=== PATIENT | male | born 1965 | race Caucasian/White ===

== ENCOUNTER 2019-09-02 12:48 | Inpatient (IN) | payer MEDICARE ==
[2019-08-31 16:44] LABS: HEMATOCRIT 42.9 % (42.0-54.0); HEMOGLOBIN 15.5 g/dL (13.5-17.5); MCH 32.9 pg (26.0-34.0); MCHC 36.1 g/dL (31.0-37.0); MCV 91.1 fL (80.0-100.0); MEAN PLATELET VOLUME 9.2 fL (7.4-10.4); RBC 4.71 10x6/uL (4.20-6.10); RDW 12.8 % (11.5-14.5); WBC 8.6 10x3/uL (4.8-10.8)
[~2019-09-02] VITALS: Ht 180.3 cm; Wt 106.4 kg
[2019-09-02] VITALS (19 sets, daily range): BP systolic 91–133; BP diastolic 60–91; Ht 180.3 cm; Wt 106.4 kg
--- NOTE | 2019-09-02 06:27 | NUR ---
0625-NOTIFIED SURGERY(HAI) OF PTS REQUEST TO SPEAK WITH PRIOR TO SIGNING BLOOD CONSENT
[~2019-09-02 12:48] MED LIST: BAYER CHEWABLE81 MG PO; CYCLOBENZAPRINE10 MG; LIPITOR40 MG PO; LISINOPRIL5 MG; SOMA350 MG; TENORMIN25 MG; TENORMIN25 MG PO
--- NOTE | 2019-09-02 19:00 | NUR ---
PT ASSESSMENT COMPLETED AT THIS TIME, PT AAOX4, NO CHANGES FROM NURSE REPORT, VSS, WILL MONITOR FOR CHANGES
--- NOTE | 2019-09-02 21:00 | NUR ---
PT TALKING WITH FAMILY AT BEDSIDE, NO DISTRESS NOTED
--- NOTE | 2019-09-02 23:00 | NUR ---
PT REASSESSMENT COMPLETED AT THIS TIME, NO CHANGES NOTED FROM PREVIOUS EXAM, VSS, WILL MONITOR FOR CHANGES
[2019-09-03] VITALS (19 sets, daily range): BP systolic 103–140; BP diastolic 57–80
--- NOTE | 2019-09-03 01:00 | NUR ---
pt awake watching tv, pt advised that he was going to try to sleep soon, and that he needed to lay on his side, pt was advised to call for assistance and we would help him get on his side.
--- NOTE | 2019-09-03 03:00 | NUR ---
PT REASSESSMENT COMPLETED AT THIS TIME, NO CHANGES NOTED FROM PREVIOUS EXAM, PT AWAKE AND STATES THAT HE CAN NOT SLEEP, PT DENIES DISTRESS, VSS AT THIS TIME, WILL MONTIOR FOR CHANGES
--- NOTE | 2019-09-03 04:57 | NUR ---
PT STATES THAT HE STILL IS NOT ABLE TO GET IN A POSITION TO SLEEP AFTER CHANGING POSITIONS THROUGH OUT THE NIGHT, PT STATES THAT HE WILL TRY TO GET SOME SLEEP NOW, VSS
--- NOTE | 2019-09-03 07:30 | NUR ---
PATIENT AWAKE AND ALERT. NON STOP TALKING. IV RIGHT HAND WITHOUT REDNESS OR SWELLING INFUSING WITH NS AT 50 ML HOUR. GILLESPIE CATH PATENT DRAINING CLEAR YELLOW URINE. ABD INCISION DRY AND INTACT. OPEN TO AIR. DENIES INCISIONAL PAIN SMALL AREAS OF DISCOMFORT IN VARIOUS PLACES, HIS THROAT IS SORE. DRINKING FLUIDS WITHOUT DIFFICULTY, NO SWALLOWING DIFFICULTY. HEAD OF BED ELEVATED 30 DEGREES. NO PROBLEM USING MORPHINE SHACTOR. IN CONSTANT MOTION IN BED. UNDERSTANDS HE IS ON BEDREST. MONITOR SR. ON ROOM AIR. SCD OFF AT PATIENT INSISTANCE. DRINKING COFFEE.NO DISTRESS
--- NOTE | 2019-09-03 08:00 | NUR ---
BREAKFAST TRAY SERVED ATE HIS EGGS. ALL FLUIDS ON TRAY.
--- NOTE | 2019-09-03 09:00 | NUR ---
MEDS TAKEN WITHOUT DIFFICULTY. NAPPING ATINTERVALS. AWAKES EASILY
--- NOTE | 2019-09-03 10:35 | OP ---
PATIENT NAME: JAKE SARKAR MEDICAL RECORD: [id number] :61 LOCATION:[facility] ADMISSION DATE:09/02/19 SURGEON: CARINE MELENDEZ MD DATE OF OPERATION: 09/02/2019 PREOPERATIVE DIAGNOSIS: Degenerative disc disease, L5-S1. POSTOPERATIVE DIAGNOSIS: Degenerative disc disease L5-S1. PROCEDURE: Anterior lumbar interbody fusion L5-S1 (please see Dr. Parson's dictation). This is a cosurgeon case. The access surgeon is Carine Melendez MD. The neurosurgeon is Dr. Avani Parson MD This is a cosurgeon case that Dr. Parson performed. Due to the complexity of the procedure, it was necessary to have 2 attending surgeons present for the procedure. I was present from positioning of the initial skin incision all the way until the final closure. OPERATIVE COURSE: Prior to positioning the patient, general anesthesia was induced by the anesthesia staff. The abdomen was sterilely prepped and draped. A lower midline incision was accomplished between the pubic symphysis and umbilicus. Sharp dissection was carried out through the skin and subcutaneous tissue as well as Reyna fascia. I incised the linea alba. I then the rectus muscles. I dissected down through preperitoneal fat. The transversalis fascia was identified and was incised laterally to the left. This allowed me to bluntly dissect out the peritoneal sac. Care was paid not to injure any nervous structures, the left ureter, the cord structures or any great vessel. None of these were injured during the procedure. Dr. Parson assisted me with retraction during this portion of the procedure. I was then able to place the Bookwalter retractor and was able to expose the sacral promontory. The median sacral vessels were cauterized with bipolar cautery. While retracting the entire time, Dr. Parson went about disc removal, preparation of the endplates as well as placement of trials and then the final fixation appliance. As I said no damage to the ureter, no damage to any vessel. Once he had placed the fixation device and was satisfied with placement, I then went about removing the retractors and also examining the left ureter, which was undamaged during the procedure. I noted no evidence of blood vessel damage. The rectus muscles were approximated in the midline with multiple interrupted horizontal mattress #1 Vicryls. The anterior fascia was approximated with a running looped #1 PDS from the cephalad and caudad directions. The subdermis was approximated with interrupted 3-0 Vicryls. The skin was approximated with a running intracuticular 3-0 Vicryl. A Prineo wound dressing was then applied. The patient was then extubated and conveyed to post-anesthesia care unit where he was in stable condition. TRANSINT:[id number] Voice Confirmation ID: [id number] DOCUMENT ID: [id number] OPERATIVE REPORT [id number] JAKE SARKAR, CARINE GORDILLO at 1035 CC: AVANI PARSON [id number] DICTATION DATE: 09/02/19 1741 RN HOME HEALTH: 09/03/19 0114 ADM IN [place] [id number] [place] [id number]
--- NOTE | 2019-09-03 11:30 | NUR ---
REFUSES LUNCH DUE TO NAUSEA. ZOFRAN GIVEN. OFFERED A BED BATH STATES MAYBE LATER. INCENTIVE SPIROMETRY GIVEN TO PATIENT [id number] ML EACH BREATH. ENCOURAGE TO USE FREQ. TO HELP PREVENT PNEUMONIA. VERBALIZED UNDERSTANDING.
--- NOTE | 2019-09-03 12:41 | NUR ---
PATIENT STATES HE IS FEELING FUNNY MORPHINE APPLICATION ARCHITECT MANAGER TURNED BACK TO 1 MG Q 10 MIN. PATIENT HAS ALREADY USED 30 MG OF MORPHINE PER APPLICATION ARCHITECT MANAGER STATES HIS PAIN IS A 2. PATIENT IS IN AGREEMENT WITH PLAN
--- NOTE | 2019-09-03 14:00 | NUR ---
STATES NAUSEA IS BETTER, BUT NOT COMPLETELY GONE. STATES HE HAS NOT USED MORPHINE IN OVER AN HOUR. DRINKING ON [place]. BROTHER HERE UPDATE GIVEN/ ABD DRESSING DRY AND INTACT. MONITOR SR. IV PATENT WITHOUT REDENSS OR SWELLING.
--- NOTE | 2019-09-03 15:24 | NUR ---
DR. PARSON HERE. ORDERS FOR LUMBAR CORSET, ABILIO [facility] NOTIFIED. PATIENT TO GET OUT OF BED, DC GILLESPIE CATH.
--- NOTE | 2019-09-03 16:30 | NUR ---
DINNER TRAY SERVED. POOR APPETITE. STATES HIS JAW HURTS HE CAN CHEW. NO PROBLEMS SWALLOWING.
--- NOTE | 2019-09-03 17:30 | NUR ---
GILLESPIE CATH DC'D. IV SALINE LOCKED. LUMBAR CORSET APPLIED PATIENT UP AMBULATED IN ROOM. TOLERATED FAIR. DR. MELENDEZ HERE. PATIENT VERY VERY TALKATIVE. MORE FRIENDLY THIS AFTERNOON.
--- NOTE | 2019-09-03 18:22 | NUR ---
AMBULATED FULL LENGTH OF TORRES GAIT GOOD. STILL CONTINOUSLY TALKING.
--- NOTE | 2019-09-03 19:00 | NUR ---
Patient assessment complete at this time, patient awake alert oriented x4 sitting in the bedside chair. Patient in a good mood very talkative states that his pain is much better. No changes noted from nurse report, vital signs stable at this time. We will continue to monitor for changes.
--- NOTE | 2019-09-03 21:00 | NUR ---
Patient up walking around in the room, denies any distress at this time. Patient advised that he is still eating is improved from supper, patient states that he is passing gas but has not had a bowel movement at this time. No distress noted, will continue to monitor for changes.
--- NOTE | 2019-09-03 23:00 | NUR ---
pt sitting up in chair talking to family, no distress noted, vss
--- NOTE | 2019-09-04 01:00 | NUR ---
PT RESTING IN BED, PT STATES THAT HE IS TRYING TO SLEEP BUT IS HAVING A LOT OF COUGHING, PT DENIES ANY DISTRESS, WILL MONITOR FOR CHANGES
--- NOTE | 2019-09-04 02:32 | NUR ---
PT UP WALKING DOWN THE TORRES, PT STATES THAT THE COUGHING HAS MADE HIS ABD AND INCISION HURT, PT GIVEN PRN PAIN MEDS AT THIS TIME, WILL MONITOR FOR EFFECTS
[2019-09-04 03:00] VITALS: BP 118/79
--- NOTE | 2019-09-04 05:04 | NUR ---
pt up walking around the hoang, states that he is trying to loosen up his joints, no distress noted, will monitor for changes
[2019-09-04 09:15] VITALS: BP 143/76
--- NOTE | 2019-09-04 17:44 | NUR ---
1715: IV IN R HAND DC'D. 1730: DISCHARGE INSTRUCTIONS REVIEWED. PRECRIPTIONS FOR PAIN MED AND ROBAXIN GIVEN. 1740: DISHCARGED HOME WITH BROTHER. ESCORTED TO DOOR.
== END 2019-09-04 17:40 | disposition home or self-care (01) | DRG 460 ==
LOC: D.OPS 12:48 → D.ICU 12:48 → D.CVICU 12:57 → D.OPS 13:33 → D.CVICU 13:33
PROVIDERS: Anesthesiology; ADMIT Neurological Surgery; ATTEND Neurological Surgery
PROC: 0SG30A0 Fusion of Lumbosacral Joint with Interbody Fusion Device, Anterior Approach, Anterior Column, Open Approach (ICD-10-PCS; principal; 2019-09-02 08:15)
DX: M51.17 Intervertebral disc disorders with radiculopathy, lumbosacral region (principal); F17.200 Nicotine dependence, unspecified, uncomplicated; J44.9 Chronic obstructive pulmonary disease, unspecified; M54.16 Radiculopathy, lumbar region; M51.36 Other intervertebral disc degeneration, lumbar region

== ENCOUNTER → 2019-12-06 12:17 | Outpatient (CLI) | payer MEDICARE ==
[2019-09-02 18:36] VITALS: BMI 30.7
[~2019-12-06 12:17] MED LIST changes: +HYDROCODON-ACE1 EA10 PO
== END | disposition home or self-care (01) ==
LOC: D.LABREF 12:17
PROVIDERS: ATTEND Internal Medicine Pulmonary Disease
DX: Z11.59 Encounter for screening for other viral diseases (principal)

== ENCOUNTER 2019-12-08 11:45 | Day surgery (SDC) | payer MEDICARE ==
[2019-12-06 09:26] LABS: HEMATOCRIT 49.2 % (42.0-54.0); HEMOGLOBIN 17.1 g/dL (13.5-17.5); MCH 32.1 pg (26.0-34.0); MCHC 34.8 g/dL (31.0-37.0); MCV 92.5 fL (80.0-100.0); MEAN PLATELET VOLUME 9.2 fL (7.4-10.4); RBC 5.32 10x6/uL (4.20-6.10); RDW 13.4 % (11.5-14.5); WBC 8.8 10x3/uL (4.8-10.8)
[~2019-12-08] VITALS: Ht 180.3 cm; Wt 92.7 kg
--- NOTE | ~2019-12-08 | OP ---
PATIENT NAME: JAKE SARKAR MEDICAL RECORD: [id number] :61 LOCATION:[facility] ADMISSION DATE: SURGEON: AVANI KELLY MD DATE OF OPERATION: 12/08/2019 PREOPERATIVE DIAGNOSES: Disc herniation and osteophyte formation at C3-C4 with cervical radiculopathy and severe spinal canal stenosis. POSTOPERATIVE DIAGNOSES: Disc herniation and osteophyte formation at C3-C4 with cervical radiculopathy and severe spinal canal stenosis. PROCEDURE: Anterior cervical discectomy and fusion with removal of osteophytes and disc herniation AT C3-C4, Zavation anterior cervical plate and screws, separate from a PEEK interbody cage with bone stem cells. SURGEON: Avani Kelly MD RADIO INTELLIGENCE OPERATOR: Elver Martinez APN DESCRIPTION AND TECHNIQUE: After induction of general endotracheal anesthesia, the patient was positioned supine on the operating table with the interscapular roll. The neck was prepped and draped in usual sterile fashion. Fluoroscopic x-ray and [place] dissector localized the C3-C4 interspace. After injecting the skin with 1% lidocaine with 1:100,000 epinephrine, a transverse skin incision was carried out at the C3-C4 interspace. The platysma was divided with sharp dissection. Using blunt and sharp dissection with Metzenbaum scissors, I proceeded in avascular plane medial to the carotid sheath. The C3-C4 interspace was identified with fluoroscopic x-ray and spinal needle. The longus colli muscles were elevated from bodies of C3 and C4. A self-retaining retractor was placed deep to the longus colli muscles. [place] distracting pins were placed by the C3 and C4. Disc space was incised under distraction. The disc material was removed with a combination of pituitary rongeurs and curettes as well as the cartilaginous endplates on both levels. Posteriorly, a Midas-Wally drill and microscope were used to remove osteophytes and disc herniation. The posterior longitudinal ligament was removed with Cloward rongeurs. Following this, the dura was decompressed well. A separate PEEK cage was placed in the disc space under distraction. Prior to this, it was filled with [place] bone allograft with bone stem cells. A separate anterior cervical plate and screws from [employer] was used to span the C3-C4 interspace. Self-drilling screws were placed through the holes in the plate. Locking cams were tightened down over the screw heads. Good position of the hardware was confirmed with fluoroscopic x-ray. Meticulous hemostasis was maintained throughout the wound. The wound was irrigated with copious amounts of Ancef irrigant solution. The platysma and subdermal layer closed with interrupted 3-0 Vicryl suture. The skin was reapproximated with Steri-Strips and benzoin. A sterile dressing was applied to the wound. The patient was awakened in good condition and taken to recovery. All counts were reported as correct. ESTIMATED BLOOD LOSS: Minimal. Elver Martinez was first press operator throughout the procedure. He preprovided retraction and hemostasis throughout the entirety of the procedure. TRANSINT:[id number] Voice Confirmation ID: [id number] DOCUMENT ID: [id number] OPERATIVE REPORT [id number] JAKE SARKAR JOHN MD CC: [id number] DICTATION DATE: 12/26/19820 COMMERCIAL FRONT LOAD OPERATOR: 12/26/19 0942 [facility] SD[facility] 12/09/19 [place] [id number] [place] [address]
[~2019-12-08 11:45] MED LIST changes: -HYDROCODON-ACE1 EA10 PO
[2019-12-08] MEDS ORDERED: HYDROCODON-ACE1 EA10 PO (12:48)
[2019-12-08 12:52] VITALS: BP 123/84; BMI 28.5
[2019-12-08 18:38] VITALS: BP 124/82
--- NOTE | 2019-12-08 19:30 | NUR ---
RECIEVED PT TO FLOOR FROM RECOVERY, AOX4. SOFT COLLAR IN PLACE, REMOVED TO LOOK AT NECK, INCISION AND DRESSING CDI, REPLACED COLLAR. ASSISTED PT UP TO BATHROOM TO VOID. AMBULATED INDEPENDENTLY, NEEDED NO ASSIST. PT STATES PAIN 5/10, GAVE NORCO ORDERED. DENIES OTHER NEEDS AT THIS TIME. CL IN REACH, WILL CTM
[2019-12-08 20:00] VITALS: BP 156/95
[2019-12-09] VITALS: BP 108/72
[2019-12-09 01:35] VITALS: Ht 180.3 cm; Wt 92.7 kg
--- NOTE | 2019-12-09 07:31 | NUR ---
PT RESTING IN BED WITH EYES OPEN, ALERT AND ORIENTED. INCISION NOTED TO LEFT NECK. IV LOCATED TO RIGHT HAND RUNNING D5 1/2NS @ 50ML/HR. DENIES CURRENT NEEDS, WILL CONT TO MONITOR.
[2019-12-09] MEDS ORDERED: HYDROCODON-ACE1 EA10 PO (09:44)
[2019-12-09 10:29] VITALS: BP 131/83
--- NOTE | 2019-12-09 13:07 | NUR ---
DC PAPERS SIGNED, PT STATES WILL BE AWHILE BEFORE RIDE IS HERE.
--- NOTE | 2019-12-09 13:57 | NUR ---
IV REMOVED, CATHETER TIP INTACT, WAITING FOR RIDE.
== END 2019-12-09 14:54 | disposition home or self-care (01) ==
LOC: D.OPS 11:45 → D.PAN 12:30 → D.OPS 12:30 → D.PAN 13:40 → D.MS 18:27 → D.OPS 12-09 14:54
PROVIDERS: Anesthesiology; ATTEND Neurological Surgery
DX: M50.10 Cervical disc disorder with radiculopathy, unspecified cervical region (principal)